=== PATIENT | female | born 1965 | race Caucasian/White ===

== ENCOUNTER → 2017-01-25 | Outpatient (CLI) | payer OTHER ==
--- NOTE | 2017-01-25 10:16 | RAD ---
DATE: 01/25/2017 EXAM: MAMMO JANE MJ ESCOBEDO, BREAST LEFT HISTORY: Left breast pain COMPARISON: 08/04/2013 FINDINGS: Breast Density: HETERO The breast parenchyma Is heterogeneiously dense, which could reduce sensitivity of mammography. Breast parenchyma level C. There are several well-defined masses in the left breast which appears similar to the previous exam. There is a possible new nodule at the 12:00 position of the breast. The right breast is unremarkable. Benign-appearing calcifications are noted. Ultrasound of the left breast was performed. There are well defined cysts at the 3 and 10:30 position. At the 11:30 position there is a complex, somewhat shadowing, 1 cm mass which does not have the features of a simple cyst. Biopsy is recommended. At the 1:00 position of the left breast there is what appears to be heterogeneous breast tissue without an definite mass. Follow-up of this area in the left breast is suggested in 6 months with ultrasound. IMPRESSION: Complex mass at the 11:30 position of the follow-up ultrasound is advised ultrasound-guided biopsy is recommended. Probable benign heterogeneous tissue at the 1:00 position of the left breast. Follow-up ultrasound of this area in 6 months is suggested. The recommendation for biopsy in the left breast was provided by Basilia, the mechanical engineering technologist performing the examination, to the patient. BI-RADS CATEGORY: 4 SUSPICIOUS ABNORMALITY-BIOPSY SHOULD BE CONSIDERED RECOMMENDED FOLLOW-UP: BIO BIOPSY RECOMMENDED PQRS compliance statement: Patient information was entered into a reminder system with a target due date soon for the next mammogram. Mammography is a sensitive method for finding small breast cancers, but it does not detect them all and is not a substitute for careful clinical examination. A negative mammogram does not negate a clinically suspicious finding and should not result in delay in biopsying a clinically suspicious abnormality. "Our facility is accredited by the [employer] Mammography Program."
== END | disposition home or self-care (01) ==
LOC: KCIC US 08:02
PROVIDERS: ATTEND Obstetrics & Gynecology
DX: N64.4 Mastodynia (principal)
CPT/HCPCS: 76641; G0204; G0279; 77062; 77066